=== PATIENT | male | born 1950 | race Caucasian/White ===

== ENCOUNTER → 2017-05-30 | Outpatient (CLI) | payer OTHER | LOC: FIMAGING 11:12 | PROVIDERS: ATTEND Family Medicine | DX: R55 Syncope and collapse (principal) ==

== ENCOUNTER → 2017-07-04 | Outpatient (CLI) | payer OTHER ==
[~2017-07-04] MED LIST: GADOBUTROL 10 ML VIAL IVP ONE
== END ==
LOC: FIMAGING 07:58
DX: R93.0 Abnormal findings on diagnostic imaging of skull and head, not elsewhere classified (principal); H93.11 Tinnitus, right ear
CPT/HCPCS: 70553; A9585

== ENCOUNTER → 2017-10-28 | Outpatient (CLI) | payer OTHER | LOC: FIMAGING 13:33 | PROVIDERS: ATTEND Internal Medicine | DX: M51.26 Other intervertebral disc displacement, lumbar region (principal) ==

== ENCOUNTER 2017-11-29 05:42 | Day surgery (SDC) | payer OTHER ==
[2017-11-29] MEDS ORDERED: LR 1,000 ML IV ONE (06:04)
[2017-11-29] MEDS ORDERED: SURGIFLO MATRIX KIT WITH THROMBIN 8 ML TP ONE (06:38)
[2017-11-29] MEDS ORDERED: BUPIVACAINE/EPI 0.5% 30 ML SDV ONE (06:38)
[2017-11-29] MEDS ORDERED: BACITRACIN 50,000 UNITS/10 ML SYR IRR ONE (06:39)
[2017-11-29] MEDS ORDERED: VANCOMYCIN 1 GM VIAL ONE (06:39)
[2017-11-29] MEDS ORDERED: MIDAZOLAM 2 MG/2 ML VIAL IVP ONE (06:41)
[2017-11-29] MEDS ORDERED: fentaNYL 250 MCG/5 ML INJ ONE (06:45)
[2017-11-29] MEDS ORDERED: PROPOFOL/EMULSION 500 MG/50 ML BOTTLE IV ONE (06:46)
[2017-11-29] MEDS ORDERED: REMIFENTANIL HCL 1 MG VIAL ONE (06:55)
--- NOTE | 2017-11-29 06:58 | PDHPUP ---
History & Physical Update H&P update statement: This history and physical update is based on an assessment of the patient which was completed after admission or registration (within 24 hours), but prior to the surgery/procedure. H&P update: no change in patient's condition since H&P completed H&P changes: No change.
[2017-11-29] MEDS ORDERED: TRANEXAMIC ACID 1,000 MG in NS 100 ML IV ONE (07:00)
[2017-11-29] MEDS ORDERED: ACETAMINOPHEN 500 MG TAB PO ONE (07:00)
[2017-11-29] MEDS ORDERED: ceFAZolin 2 GM/DEXTROSE 100 ML IV ONE (07:00)
[2017-11-29] MEDS ORDERED: GABAPENTIN 300 MG CAP PO ONE (07:00)
[2017-11-29] MEDS ORDERED: ONDANSETRON 4 MG/2 ML VIAL ONE (07:02)
[2017-11-29] MEDS ORDERED: SUCCINYLCHOLINE CHLORIDE 200 MG/10 ML SYR IVP ONE (07:02)
[2017-11-29] MEDS ORDERED: RANITIDINE 50 MG/2 ML VIAL ONE (07:02)
[2017-11-29] MEDS ORDERED: METOCLOPRAMIDE 10 MG/2 ML VIAL ONE (07:02)
[2017-11-29] MEDS ORDERED: ONDANSETRON 4 MG/2 ML VIAL IVP PRN (07:05)
[2017-11-29] MEDS ORDERED: fentaNYL 100 MCG/2 ML INJ IVP PRN (07:05)
[2017-11-29] MEDS ORDERED: MEPERIDINE 25 MG/0.5 ML AMP IVP PRN (07:05)
[2017-11-29] MEDS ORDERED: LABETALOL HCL 5 MG/ML 20 ML MDV IVP PRN (07:05)
[2017-11-29] MEDS ORDERED: HYDROmorphONE/DILAUDID 2 MG/ML INJ IVP PRN (07:05)
[2017-11-29] MEDS ORDERED: METOCLOPRAMIDE 10 MG/2 ML VIAL IVP PRN (07:05)
[2017-11-29] MEDS ORDERED: DIAZEPAM 5 MG/ML 1 ML SYR IVP PRN (07:05)
[2017-11-29] MEDS ORDERED: ALBUTEROL 3 ML DEYVIAL IH PRN (07:05)
[2017-11-29] MEDS ORDERED: NALOXONE HCL 0.4 MG/ML INJ IVP PRN (07:05)
--- NOTE | 2017-11-29 07:05 | PDANEPAE ---
ANE Past Medical History - Cardiovascular History Hx Hypertension: No Hx Arrhythmias: No Hx Chest Pain: No Hx Coronary Artery / Peripheral Vascular Disease: No Hx CHF / Valvular Disease: No Hx Palpitations: No Cardiovascular History Comment: Had heart scan last month w/ new PCP as a preventative and was diagnosed with some plaque build up. Stress tests negative. - Pulmonary History Hx COPD: No Hx Asthma/Reactive Airway Disease: No Hx Recent Upper Respiratory Infection: No Hx Oxygen in Use at Home: No Hx Sleep Apnea: No Sleep Apnea Screening Result - Last Documented: Negative - Neurologic History Hx Cerebrovascular Accident: No Hx Seizures: No Hx Dementia: No Neurologic History Comment: Has been losing balance r/t spinal stenosis. - Endocrine History Hx Diabetes: No - Renal History Hx Renal Disorders: No - Liver History Hx Hepatic Disorders: No - Neurological & Psychiatric Hx Hx Neurological and Psychiatric Disorders: Yes Neurological / Psychiatric History Comment: anxiety - Cancer History Hx Cancer: Yes Cancer History Comment: minor skin cancer on back and face - Congenital Disorder History Hx Congenital Disorders: No - GI History Hx Gastrointestinal Disorders: No - Other Health History Other Health History: tinnitus, right ear. has hearing loss but does not wear hearing aides - Chronic Pain History Chronic Pain: Yes (lower back, back of both legs) - Surgical History Prior Surgeries: left knee surgery 20 years ago. several colonoscopies ANE Review of Systems Review of Systems: - Exercise capacity METS (RN): 5 METS ANE Patient History - Allergies Allergies/Adverse Reactions: No Known Allergies Allergy (Verified 11/20/17 12:56) - Home Medications Home Medications: Adult One Daily Multivit Tab 11/20/17 [Last Taken Unknown] Allergy Relief 11/20/17 [Last Taken 11/24/17] Aspirin 325 mg (*) 11/20/17 [Last Taken 11/24/17] Finasteride 11/20/17 [Last Taken 11/24/17] Gabapentin 11/20/17 [Last Taken 11/22/17] Lipitor 11/20/17 [Last Taken Unknown] Magnesium 11/20/17 [Last Taken 11/22/17] - NPO status NPO Since - Liquids (Date): 11/29/17 NPO Since - Liquids (Time): 19:30 NPO Since - Solids (Date): 11/28/17 NPO Since - Solids (Time): 19:30 - Smoking Hx Smoking Status: Former smoker - Family Anes Hx Family Hx Anesthesia Complications: none ANE Labs/Vital Signs - Vital Signs Blood Pressure: 148/95 Heart Rate: 65 Respiratory Rate: 12 O2 Sat (%): 96 Height: 190.5 cm Weight: 89.358 kg ANE Physical Exam - Airway Neck exam: FROM Mallampati Score: Class 2 Mouth exam: normal dental/mouth exam - Pulmonary Pulmonary: no respiratory distress, clear to auscultation - Cardiovascular Cardiovascular: regular rate and rhythym, no murmur, rub, or gallop - ASA Status ASA Status: II ANE Anesthesia Plan Anesthesia Plan: general endotracheal anesthesia
[2017-11-29] MEDS ORDERED: THROMBIN (BOVINE) 5,000 UNIT VIAL TP ONE (07:11)
[2017-11-29] MEDS ORDERED: TRANEXAMIC ACID 1,000 MG/10 ML VIAL ONE (07:11)
[2017-11-29] MEDS ORDERED: KETOROLAC 30 MG/1 ML SDV ONE (08:00)
--- NOTE | 2017-11-29 08:41 | SUROPNOTE ---
PATR[facility] Operative Report - Surgery Date: 11/29/17 Pre-operative Diagnosis: Lumbar Spinal Stenosis Post-operative Diagnosis: Same Procedure: Lt L4/5 Minimally Invasive Lumbar Nathaniel-laminectomy and Bilateral Decompression Use of a surgical microscope Use of intraoperative neuromonitoring, including EMG, SSEP, and MEP modalities Surgeon: Nehemiah Noble MD Handkerchief Cutter: Katie Sumner CST Anesthesia: General endotracheal anesthesia Findings: As expected lumbar spinal stenosis Estimated Blood Loss: 10mL Drains: None Specimens: None Complications: None Condition: Transferred to PACU in stable condition. Implants: None Indications: This patient was seen in my office and diagnosed with lumbar spinal stenosis. I have explained all options of treatment for the patient, and the patient has elected to proceed with operative management. I have explained all risks, benefits, and alternatives of the proposed procedure. The risks that we have discussed include , blindness, nerve damage, infection, dural tear, failure of surgery to alleviate pre-operative symptoms, possible to conversion to an open decompression, and possible need for further operation. In addition to the aforementioned procedure, I also discussed with the patient that other procedures may be indicated during the course of surgery that would be considered in the patients best interest. The patient expressed understanding of this. Pre-operative: The proposed incision site was marked in the pre-operative holding area by me. The patient was then taken to the operating room in stable condition. Following smooth induction of general anesthesia, the patient was positioned prone on a Yoav table in mild reverse Trendelenburg with all down surfaces well-padded. The patient was then prepped and draped in the usual sterile fashion. Pre- operative antibiotics were administered within one hour of the incision. A surgical timeout was performed, and all parties involved in the procedure were in agreement on the correct patient, location, and procedure to be performed. Level identification: The proposed L4 and L5 levels were identified using C-arm fluoroscopy and the skin was marked for the proposed incision. Based on pre-operative templating, a spinal needle was inserted under fluoroscopic guidance to the level of the decompression to be performed, 1.5cm from midline on the patients left side. Following radiographic confirmation of proposed endoscopic trajectory, a 25mm longitudinal incision was made through both the skin and fascia in an expected trajectory. Electrocautery was used to coagulate any bleeding vessels identified above the level of the fascia. A blunt probe was then passed through the fascial incision and docked on the lateral pars of the proposed level of dissection. Serial dilation was then performed, up to a size that would accommodate placement of a Metrx decompression tube. A sterile articulating arm was then attached to the table and affixed to the tube. Proper trajectory was again confirmed by lateral radiograph. The tube was docked on the caudal aspect of the cephalad level. Decompression: A high-speed anton was used to perform a hemilaminectomy of both the level cephalad and caudal to be decompressed. A partial facetectomy was performed at this level to allow for proper decompression, involving less than one-third of the medial facet at this level. The ligamentum flavum was left intact as a buffer to protect the dura while the ventral spinal process and contralateral lamina using a high-speed anton. At this time the ligamentum flavum was elevated from the dura using blunt dissectors and resected using Kerrison rongeurs. The contralateral lateral recess and foramina were identified and decompressed in a similar fashion. A Rutherford ball probe was used to ensure thorough decompression of both the exiting and traversing nerve root on both sides. At this time, a ball probe was used to probe all foraminae at the affected levels. Where necessary, a small Kerrison rongeur was used to decompress remaining bone and soft tissue so that all nerve roots would traverse freely through the foraminae. Closure: The surgical field was then copiously irrigated with sterile saline. Based on the amount of oozing and tenuous dura, a small amount of duraseal was applied to the surgical field before initiation of closure. #1 braided and absorbable interrupted sutures were used to repair the spinous processes and interspinous ligaments. There was good bony apposition noted between all repaired spinous processes. Then 2-0 interrupted sutures were used to repair the dermal layer, and a separate 3-0 monofilament suture was used to repair the subcutaneous layer in a running fashion. All sutures used were absorbable. Topical adhesive was then applied to the skin and allowed to dry. A sterile island dressing was applied over the surgical incision. A surgical count was performed before initiation of closure and following the procedure, and all were correct. I was present for all critical portions of the procedure. Surgical microscope use: A surgical microscope was utilized throughout the decompressive portion of this case. This was deemed necessary for safe and accurate surgical decompression of affected nerve roots. electrician assistant: A surgical aide was used throughout the case, and deemed necessary for safe neural retraction, hemostasis, and suction. Recovery: The patient was extubated uneventfully in the operating room. The patient was taken to the recovery room in stable condition. Sequential compression devices for VTE prophylaxis were applied to the patients lower extremities, and were ordered to be used while the patient was non-ambulatory. Chemical VTE prophylaxis was considered to be contraindicated for this patient because of the risk of bleeding near the epidural space. Nehemiah Noble MD
--- NOTE | 2017-11-29 10:10 | POSTANESTH ---
Post Anesthetic Evaluation Cardiovascular Status: Normal, Stable Respiratory Status: Normal, Stable Level of Consciousness/Mental Status: Mildly Sleepy, Arousable Pain Control: Adequate, Prn Tx Ordered Nausea/Vomiting Control: Adequate, Prn Tx Ordered Complications Possibly Related to Anesthesia: None Noted
[2017-11-29 10:58] VITALS: BP 129/86
== END 2017-11-29 11:15 | disposition home or self-care (01) ==
LOC: FSGY 05:42
PROVIDERS: ATTEND Orthopaedic Surgery Orthopaedic Surgery of the Spine
PROC: BR191ZZ Fluoroscopy of Lumbar Spine using Low Osmolar Contrast (ICD-10-PCS; principal; 2017-11-29 07:15)
PROC: 4A10X4G Monitoring of Central Nervous Electrical Activity, Intraoperative, External Approach (ICD-10-PCS; principal; 2017-11-29 07:15)
PROC: 00NY0ZZ Release Lumbar Spinal Cord, Open Approach (ICD-10-PCS; principal; 2017-11-29 07:15)
DX: M48.062 Spinal stenosis, lumbar region with neurogenic claudication (principal)
CPT/HCPCS: J0330; J0690; J1885; J2250; J2405; J2704; J2765; J2780; J3010; J3370

== ENCOUNTER 2018-02-11 15:26 | Observation (INO) | payer OTHER ==
[2018-02-11] MEDS ORDERED: ONDANSETRON 4 MG/2 ML VIAL IVP PRN (17:48)
[2018-02-11] MEDS ORDERED: ACETAMINOPHEN 325 MG TAB PO PRN (17:48)
[2018-02-11] MEDS ORDERED: ONDANSETRON DISINTEGRATING 4 MG TAB PO PRN (17:48)
[2018-02-11 18:20] LABS: PLATELET COUNT 227 10^3/uL (150-400)
--- NOTE | 2018-02-11 20:56 | GHP ---
DATE OF ADMISSION: 02/11/2018 ADMITTING DIAGNOSIS: Lightheadedness and possible EKG changes. HISTORY OF PRESENT ILLNESS: The patient is a 67-year-old male with a past medical history including elevated coronary artery calcium score, anxiety, and peripheral neuropathy, who presented to the office today complaining of a recurrent episode of lightheadedness while exercising. Multiple months ago, the patient experienced his 1st episode while walking. He was out for a hike and suddenly became lightheaded and fell to the ground without loss of consciousness. This has since happened 2 other times, including last week, and then yesterday the patient was out walking and reportedly did not feel right, though he did not experience the profound lightheadedness with weakness resulting in a fall to the ground. The patient denies any associated palpitations, chest pain, dizziness, headache, nausea, vomiting, or chest pain. In the office, an EKG was performed which showed possible minor ST elevation in leads V2, V3, and V4 though a baseline EKG was unavailable to compare to. Again while in the office, the patient denied any chest pain, palpitations, dizziness, or shortness of breath. The patient also reports that over the past week or so he and his have noticed increased bilateral lower extremity edema, which was worse yesterday than today in the office. He has not noted any associated shortness of breath or cough with this, and he does not have any known vascular disease or valvular heart disease or congestive heart failure. The patient will be admitted to the hospital for observation overnight for cardiac monitoring, troponin level, echocardiogram, and lower extremity venous Doppler. REVIEW OF SYSTEMS: GENERAL: Denies headache, fevers, chills. HEENT: Denies vision changes, sinus pressure, sinus congestion, sore throat. RESPIRATORY: Denies cough, shortness of breath. CARDIOVASCULAR: Denies chest pain, palpitations, shortness of breath. ABDOMINAL: Denies nausea, vomiting, diarrhea, change in bowel habits. EXTREMITIES: Endorses bilateral lower extremity edema over the past week. SKIN: Denies itching, rash, skin changes. NEURO: Denies numbness, tingling, weakness. Endorses lightheadedness while exercising. PHYSICAL EXAM: GENERAL: Alert, oriented, no acute distress. HEAD: Normocephalic, atraumatic. HEENT: PERRL. EOMI. RESPIRATORY: Lungs clear to auscultation bilaterally. CARDIOVASCULAR: S1, S2. Regular rate and rhythm. No murmurs, rubs, gallops. SKIN: Warm and dry. NEURO: Grossly intact and nonfocal. Normal strength and sensation bilaterally. EXTREMITIES: Bilateral lower extremity edema 1 to 2+. ASSESSMENT AND PLAN: 1. Lightheadedness. We will admit for observation. Plan for overnight telemetry monitoring with a repeat EKG in the morning, troponin, CBC, CMP, BNP, echocardiogram in the morning. Currently without any symptoms of acute coronary syndrome. We will continue to monitor. 2. Peripheral lower extremity edema. Labs pending as noted above. We will also check out the venous Doppler ultrasound to rule out deep venous thrombosis. 3. Elevated coronary artery calcium score. Last EBT heart scan was this summer , which revealed a coronary artery calcium score of 642, which puts the patient at between the 75th and 90th percentile for cardiovascular event risk. As noted above, he is not currently exhibiting any outward signs of acute coronary syndrome. Though we will continue with the above-mentioned workup. 4. Deep venous thrombosis prophylaxis. Sequential compression devices, encourage ambulation. 5. Disposition. Admit for observation overnight. Likely home tomorrow pending a negative workup. /[id number]/MODL MTDD
[2018-02-12] MEDS ORDERED: PNEUMOC 13-VAL CONJ-DIP CRM/PF 0.5 ML SYR (PREVNAR 13) IM ONE ×2 (08:45→16:00)
[2018-02-12] MEDS ORDERED: FINASTERIDE 5 MG TAB PO SCH (09:00)
[2018-02-12] MEDS ORDERED: MULTIVITAMINS 1 EACH TAB PO SCH (09:00)
[2018-02-12] MEDS ORDERED: CHOLECALCIFEROL VIT D3 2,000 UNITS TAB/CAP PO SCH (09:00)
[2018-02-12] MEDS ORDERED: ASPIRIN 325 MG TAB PO SCH (09:00)
[2018-02-12] MEDS ORDERED: Herbals/Supplements -Info Only PO SCH (09:00)
[2018-02-12] MEDS ORDERED: GABAPENTIN 100 MG CAP PO SCH (09:00)
--- NOTE | 2018-02-12 09:06 | SOAPPROG ---
SOAP Progress Note Assessment/Plan: Assessment: 67 yo male who presented to office with multiple episodes of lightheadedness while hiking. No associated chest pain, palpitations, diaphoresis, GI upset or shortness of breath with the episodes. EKG in the office demonstrated some slight ST segment elevation in V2, V3, and V4 and without baseline EKG to compare it was decided to admit for obs over night with echo, labs, and repeat EKG. Plan: Lightheadedness- SR with PACs over night, no episodes of lightheadedness. ECHO this AM, repeat EKG pending. Vitals stable, labs stable. Encouraged Harman to ambulate and see if any sx arise, hector while on tele. Peripheral edema- BNP 45, will await ECHO results. Venous doppler neg for DVT Dispo- likely home this afternoon following ECHO 02/12/18 08:59 Subjective: Harman is resting in the chair this AM. Says he had an uneventful night. Eager to get Echo and return home. Denies CP, lightheadedness, shortness of breath. Objective: Vital Signs Temp Pulse Resp BP Pulse Ox 36.6 C 66 16 134/82 H 96 02/12/18 08:00 02/12/18 08:00 02/12/18 08:00 02/12/18 08:00 02/12/18 08:00 Laboratory Results 02/11/18 18:10 02/11/18 18:10 02/11/18 02/12/18 02/13/18 05:59 05:59 05:59 Intake Total 400 Balance 400 Gen- alert, oriented, in no acute distress Head- normocephalic, atraumatic EENT- PEERL, EOMI Resp- LCTAB, no wheezing, rhonchi, rales CV- S1S2, RRR, no murmurs, rubs, gallops Skin- warm and dry Extremities- 2+ BLE edema ICD10 Worksheet Patient Problems: Problems Problem Status Onset Lightheadedness Acute - ICD10 Problem Qualifiers (1) Lightheadedness
--- NOTE | 2018-02-12 12:11 | CPEKG ---
Test Reason : OPEN Blood Pressure : / mmHG Vent. Rate : 062 BPM Atrial Rate : 063 BPM P-R Int : 198 ms QRS Dur : 101 ms QT Int : 418 ms P-R-T Axes : 062 086 027 degrees QTc Int : 425 ms Sinus rhythm Borderline right axis deviation Confirmed by Jesse Lai ([id number]) on 02/12/2018 12:11:17 PM Referred By: Confirmed By:Jesse Lai
[2018-02-12 13:04] VITALS: BP 127/74
--- NOTE | 2018-02-12 14:21 | ECHO ---
[email or web address] [address] [address] Main: [phone] Fax: Transthoracic Echocardiogram Name: MARISELA SANTOS MR#: [id number] Study Date: 02/12/2018 Study Time: 08:57 AM Date of : 1950 Age: 67 year(s) Height: 190.5 cm (75 in.) Weight: 93.89 kg (207 lb.) BSA: 2.23 m2 Gender: Male Examination: Echo Indication: Lightheadedness, Pedal Edema, Eval LV Fx Image Quality: Contrast: Requested by: Mirella Manuel BP: 134 mmHg/82 mmHg Heart Rate: Rhythm: Normal sinus rhythm Indication: Lightheadedness, Pedal Edema, Eval LV Fx Procedure Staff Flag Signaler: David Horton RDCS Reading Physician: Alex Mayberry MD Requesting Provider: Conclusions: Normal size left ventricle. No LV hypertrophy. Normal global systolic LV function. EF is 79 %. There is no mitral valve regurgitation. Trivial aortic valve regurgitation. The tricuspid valve is normal in appearance and function. No pericardial effusion. Measurements: Chambers Valvular Assessment AV/MV Valvular Assessment TV/PV Normal Normal Normal Name Value Range Name Value Range Name Value Range Ao Cristy (MM): 4.3 cm (2.2 cm-3.7 AV Vmax: 1.15 m/s (1 m/s-1.7 PV Vmax: 0.91 m/s (0.6 m/s-0.9 cm) m/s) m/s) IVSd (2D): 1.0 cm (0.6 cm-1.1 AV maxP mmHg ( - ) PV PGmax: 3 mmHg ( - ) cm) LVOT Vmax: 0.85 m/s (0.7 m/s-1.1 LVDd (2D): 5.6 cm (4.2 cm-5.9 m/s) cm) AR (PHT): 581 ms ( - ) LVDs (2D): 2.9 cm (2.1 cm-4 MV E Vmax: 0.61 m/s ( - ) cm) MV A Vmax: 0.73 m/s ( - ) LVPWd (2D): 1.0 cm (0.6 cm-1 MV E/A: 0.84 ( - ) cm) LVEF (2D): 79 (>=54 %) Continued Measurements: Chambers Valvular Assessment AV/MV Name Value Name Value LADs Lon.2 cm MV E' Septal: 0.05 m/s Patient: MARISELA SANTOS Study Date: 02/12/2018 Page 1 of 2 08:57 AM LA Area: 20.4 cm2 MV E/E' Septal: 12.20 LA Volume: 56 ml MV E/E' Lateral: 9.00 LA Volume Index: 25.1 ml/m2 AR Vmax: 2.74 cm/s Findings: Left Ventricle: Normal size left ventricle. No LV hypertrophy. Normal global systolic LV function. EF is 79 %. No regional wall motion abnormality. Normal diastolic LV function. Right Ventricle: Normal size right ventricle. Normal RV function. Left Atrium: The left atrium is normal in size. Right Atrium: The right atrium is normal in size. Mitral Valve: The mitral valve is normal in appearance and function. There is no mitral valve regurgitation. No mitral stenosis is present. Aortic Valve: The aortic valve is normal in appearance. Trivial aortic valve regurgitation. No aortic valve stenosis is present. Tricuspid Valve: The tricuspid valve is normal in appearance and function. Pulmonic Valve: The pulmonic valve is normal in appearance and function. Aorta: The aorta is normal. Pericardium: No pericardial effusion. (No Signature Object) Patient: MARISELA SANTOS Study Date: 02/12/2018 Page 2 of 2 08:57 AM [id number]
--- NOTE | 2018-02-12 15:22 | ASDISCHSUM ---
Discharge Information Plan Status:Home with No Needs Medically Cleared to Leave:02/11/2018 Discharge Date:02/11/2018 CM D/C Disposition:Home, Routine, Self-Care ADT D/C Disposition: Projected Discharge Date:02/11/2018 Transportation at D/C:Family Discharge Delay Reason: Follow-Up Date:02/11/2018 Discharge Slot: Final Diagnosis:lightheadedness Placement Information Patient Contact Information Contact Name:JULIÁN Relationship: Address:[address] [place] Alternate Phone: [facility]/Zip Code:[place] [address] Email: Financial Information Financial Class:Medicare Advantage Plans Primary Plan Desc:[facility] Primary Plan Number:[id number] Secondary Plan Desc: Secondary Plan Number: Assessment Information LACE LACE Length of stay for Answers: Less than 1 day current admission Acuity / Level of Answers: No Care: Did the patient have an inpatient admission? Comorbidities - select Answers: Opioid dependence all that apply / Chronic pain # of Emergency department Answers: 0 visits in the last 6 months Social determinants Answers: Mental health diagnosis (anxiety, depression, pers onality disorders, etc.) Score: 7 Date Signed: 02/12/2018 03:22 PM Electronically Signed By:Yana Mace Case Management Discharge Plan Note Case Management Discharge Discharge Order Complete? Answers: Yes Patient to Obtain Answers: via Family Medications Transportation Arranged Answers: Family/Friends Transport will Pick (Date 02/12/2018 04:00 PM & Time) Family Notified Answers: Yes Notes: pt to call Discharge Comments Notes: Pt admitted for multiple episodes of lightheadedness while hiking and had an unremarkable Echocardiogram. Pt lives with Arina independently and is comfortable discharging independently. No CM needs noted at this time. CM available should needs change. Date Signed: 02/12/2018 03:21 PM Electronically Signed By:Yana Mace Intervention Information
--- NOTE | 2018-02-13 02:44 | GDS ---
ADMITTING DIAGNOSIS: Lightheadedness. HISTORY OF PRESENT ILLNESS: The patient is a 67-year-old male who presented to the office yesterday complaining of recurrent episodes of lightheadedness while out hiking. He did not lose consciousness , but fell to the ground due to the lightheadedness and weakness. He did not experience any chest pa in, palpitations, dizziness, shortness of breath or nausea associated with the lightheadedness and th en he was able to get up and walk home after the episode resolved. In the office, EKG demonstrated p ossible ST-segment elevation in leads V2, V3 and V4, but we did not have a baseline EKG to compare wi th, so we are unsure if this was the patient's baseline or ST-segment elevation due to cardiac event. The patient did have a recent EBT heart scan in October, which demonstrated a positive coronary félix ry calcium score of 642, which does place the patient between the 75th and 90th percentile for cardio vascular risk for men his age. Additionally, the patient presented with bilateral lower extremity ed farzana approximately 2+ pitting, but again did not have any associated shortness of breath or cough. Initial labs demonstrated a white blood cell count of 5.07. Sodium 138, potassium 4.1, BUN and creat inine of 21 and 0.7 respectively, and troponin of less than 0.012 and a BNP of 45. He had an echocar diogram this morning, which demonstrated an ejection fraction of 79% with normal valvular function, n ormal right and left ventricular size and function and normal atrial sizes. The patient will be disc harged home with outpatient followup with possible outpatient carotid ultrasound. He is encouraged t o push p.o. fluids and increase sodium in his diet for increased blood pressure and volume status, es pecially while exercising and hiking. He again will follow up as an outpatient for further workup. DISCHARGE MEDICATIONS: Include: Multivitamin 1 tablet p.o. daily, gabapentin 100 mg p.o. three time s daily, Proscar 5 mg p.o. daily, vitamin D3 5000 units p.o. daily, and aspirin 325 mg p.o. daily. /[id number]/MODL
== END 2018-02-12 15:53 | disposition home or self-care (01) ==
LOC: F2W 17:05 → INTOOBSV 17:05
PROVIDERS: ADMIT Internal Medicine; ATTEND Internal Medicine
DX: R42 Dizziness and giddiness (principal); R60.9 Edema, unspecified; R93.1 Abnormal findings on diagnostic imaging of heart and coronary circulation; Z23 Encounter for immunization
CPT/HCPCS: 90670; 93005; 93306; 93970; G0009; G0378

== ENCOUNTER → 2018-04-16 | Outpatient (CLI) | payer OTHER | LOC: FIMAGING 17:44 | PROVIDERS: ATTEND Internal Medicine | DX: G31.9 Degenerative disease of nervous system, unspecified (principal); M47.892 Other spondylosis, cervical region ==